=== PATIENT | female | born 1955 | race American Indian/Alaskan Native ===

== ENCOUNTER 2021-05-26 00:44 | Emergency (ER) | payer OTHER ==
[2021-05-26 02:19] LABS: Basophils % (Auto) 0.7 % (0.0-1.8); Eosinophils # (Auto) 0.2 K/mm3 (0.0-0.4); Eosinophils % (Auto) 3.3 % (0.0-4.3); Hematocrit 36.9 % (30.3-42.9); Hemoglobin 12.1 gm/dl (10.1-14.3); Lymphocytes # (Auto) 0.9 K/mm3 (1.2-5.4); Mean Corpuscular HGB Conc 33 % (30-34); Mean Corpuscular Volume 95 fl (79-97); Monocytes # (Auto) 0.5 K/mm3 (0.0-0.8); Monocytes % (Auto) 8.7 % (0.0-7.3); Platelet Count 240 K/mm3 (140-440); Red Blood Count 3.89 M/mm3 (3.65-5.03); Red Cell Distribution Width 14.4 % (13.2-15.2)
[2021-05-26 02:29] LABS: INR 1.88 (0.87-1.13)
[2021-05-26 02:30] LABS: Partial Thromboplastin Time 42.8 Sec. (24.2-36.6)
[2021-05-26 02:42] LABS: Alanine Aminotransferase 18 units/L (7-56); Albumin 4.5 g/dL (3.9-5); BUN/Creatinine Ratio 20; Blood Urea Nitrogen 22 mg/dL (7-17); Calcium 9.5 mg/dL (8.4-10.2); Hemolysis Index 11
--- NOTE | 2021-05-26 03:01 | XRay Report ---
CHEST 2 VIEWS INDICATION / CLINICAL INFORMATION: palpitations. COMPARISON: None available. FINDINGS: SUPPORT DEVICES: None. HEART / MEDIASTINUM: No significant abnormality. LUNGS / PLEURA: No significant pulmonary or pleural abnormality. No pneumothorax. ADDITIONAL FINDINGS: Cervicothoracic scoliosis with apex to the left with possible underlying vertebr al body anomaly in the upper thoracic spine. IMPRESSION: 1. No acute pulmonary or pleural findings. 2. Cervicothoracic scoliosis. Signer Name: Dominguez Crowe MD Signed: 05/26/2021 2:56 AM Workstation Name: [id number]
--- NOTE | 2021-05-26 03:05 | Emergency Department Report ---
HPI - General Chief Complaint: Arrhythmia/Palpitations Time Seen by Provider: 05/26/21 02:19 - [facility] HPI: MSE 3 The patient is a 66-year-old female present with a chief complaint of palpitations and hypertension. The patient states this evening while at rest her blood pressure elevated to 159/90 and her heart rate went up to 101 bpm. The patient states this prompted her to come to the emergency department. When asked if she has had chest pain the patient states she has had chest pain for 1 year and last saw her twister frame tender 2 days ago about the chest pain he states that "everything is okay." The patient states she had a normal stress test in [place] ugust 2020 and her last cardiac catheterization occurred in August 2019 and was within normal limits. 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 and she was told she has a diagnosis similar to lupus that makes her hypercoagulable ED Past Medical Hx - Past Medical History Previous Medical History?: Yes Hx Hypertension: Yes - Surgical History Past Surgical History?: Yes Additional Surgical History: left kidney right hand right eye left eye nodule removed from her thyroid - Family History Family history: no significant - Social History Smoking Status: Never Smoker Substance Use Type: None ED Review of Systems ROS: Stated complaint: HEART RACING HIGH BLOOD PRESSURE Other details as noted in HPI Constitutional: no symptoms reported Eyes: denies: eye pain ENT: denies: throat pain Respiratory: denies: shortness of breath Cardiovascular: chest pain, palpitations Endocrine: no symptoms reported Gastrointestinal: denies: abdominal pain Genitourinary: denies: dysuria Musculoskeletal: denies: back pain Neurological: denies: headache Physical Exam - Physical Exam Vital Signs: Vital Signs 05/26/21 00:58 Temperature 98.3 F Pulse Rate 100 H Respiratory 18 Rate Blood Pressure 134/83 O2 Sat by Pulse 98 Oximetry Physical Exam: GENERAL: The patient is well-developed well-nourished female sitting on stretcher not appearing to be in acute distress. [] HEENT: Normocephalic. Atraumatic. Extraocular motions are intact. Patient has moist mucous membranes. NECK: Supple. Trachea midline CHEST/LUNGS: Clear to auscultation. There is no respiratory distress noted. HEART/CARDIOVASCULAR: Regular. There is no tachycardia. There is no gallop rub or murmur. ABDOMEN: Abdomen is soft, nontender. Patient has normal bowel sounds. There is no abdominal distention. SKIN: There is no rash. There is no edema. There is no diaphoresis. NEURO: The patient is awake, alert, and oriented. The patient is cooperative. The patient has no focal neurologic deficits. The patient has normal speech and gait. GCS 15 MUSCULOSKELETAL: There is no evidence of acute injury. ED Course Vital Signs 05/26/21 00:58 Temperature 98.3 F Pulse Rate 100 H Respiratory 18 Rate Blood Pressure 134/83 O2 Sat by Pulse 98 Oximetry ED Medical Decision Making - Lab Data Result diagrams: 05/26/21 01:59 05/26/21 01:59 Laboratory Tests 05/26/21 05/26/21 05/26/21 01:59 01:59 01:59 WBC 5.6 RBC 3.89 Hgb 12.1 Hct 36.9 MCV 95 MCH 31 MCHC 33 RDW 14.4 Plt Count 240 Lymph % (Auto) 16.0 [place] % (Auto) 8.7 H Eos % (Auto) 3.3 Baso % (Auto) 0.7 Lymph # (Auto) 0.9 L [place] # (Auto) 0.5 Eos # (Auto) 0.2 Baso # (Auto) 0.0 Seg Neutrophils % 71.3 H Seg Neutrophils # 4.0 PT INR APTT D-Dimer Sodium 142 Potassium 4.2 Chloride 102.1 Carbon Dioxide 26 Anion Gap 18 BUN 22 H Creatinine 1.1 Estimated GFR > 60 BUN/Creatinine Ratio 20 Glucose 111 H Calcium 9.5 Total Bilirubin 0.20 AST 24 ALT 18 Alkaline Phosphatase 105 Troponin T < 0.010 Total Protein 7.4 Albumin 4.5 Albumin/Globulin Ratio 1.6 TSH 3.640 Free T4 1.20 Urine Color Urine Turbidity Urine pH Ur Specific [place] Urine Protein Urine Glucose (UA) Urine Ketones Urine Blood Urine Nitrite Urine Bilirubin Urine Urobilinogen Ur Leukocyte Esterase Urine WBC (Auto) Urine RBC (Auto) 05/26/21 05/26/21 05/26/21 02:04 02:04 Unknown WBC RBC Hgb Hct MCV MCH MCHC RDW Plt Count Lymph % (Auto) [place] % (Auto) Eos % (Auto) Baso % (Auto) Lymph # (Auto) [place] # (Auto) Eos # (Auto) Baso # (Auto) Seg Neutrophils % Seg Neutrophils # PT 23.3 H INR 1.88 H APTT 42.8 H D-Dimer 223.68 Sodium Potassium Chloride Carbon Dioxide Anion Gap BUN Creatinine Estimated GFR BUN/Creatinine Ratio Glucose Calcium Total Bilirubin AST ALT Alkaline Phosphatase Troponin T Total Protein Albumin Albumin/Globulin Ratio TSH Free T4 Urine Color Straw Urine Turbidity Clear Urine pH 7.0 Ur Specific [place] 1.008 Urine Protein <15 mg/dl Urine Glucose (UA) Neg Urine Ketones Neg Urine Blood Neg Urine Nitrite Neg Urine Bilirubin Neg Urine Urobilinogen < 2.0 Ur Leukocyte Esterase Neg Urine WBC (Auto) < 1.0 Urine RBC (Auto) 1.0 - EKG Data -: EKG Interpreted by [place] EKG shows normal: sinus rhythm, axis Rate: normal (82 bpm) - EKG Data When compared to previous EKG there are: previous EKG unavailable Interpretation: other (No ischemic changes seen) - Differential Diagnosis Anxiety, PE, GERD, Critical care attestation.: If time is entered above; I have spent that time in minutes in the direct care of this critically ill patient, excluding procedure time. ED Disposition Clinical Impression: Hypertension Disposition: 01 HOME / SELF CARE / HOMELESS Is pt being admited?: No Does the pt Need Aspirin: No Condition: Stable Instructions: Hypertension (ED), Hypertension, Adult, [id number], Managing Your Hypertension Additional Instructions: Return to the emergency department should you develop worsening symptoms, inability to tolerate food or liquids, high fever or any other concerns Referrals: Your, twister frame tender [Other] - 3-5 Days Time of Disposition: 04:08
[2021-05-26 03:07] LABS: Free T4 (Free Thyroxine) 1.2 ng/dL (0.76-1.46)
[2021-05-26 03:07] LABS: Bilirubin,Urine NEG (Negative); Blood,Urine NEG (Negative); Color,Urine Straw (Yellow); Protein,Urine <15 mg/dL mg/dL (Negative); Urobilinogen,Urine < 2.0 mg/dL (<2.0); WBC,Urine < 1.0 /HPF (0.0-6.0)
[2021-05-26 04:58] VITALS: BP 135/75
--- NOTE | 2021-05-26 13:10 | Electrocardiograph Report ---
[facility] Test Date: 2021-05-26 Test Time: 02:27:11 Pat Name: ANA TOTH Department: Room: Gender: F Echocardiograph Tech: : 1955 Requested By: CHRISTOPHER KURTZ Order Number: [id number] Reading MD: Zina Rowe Measurements Intervals [place] Rate: 82 P: 66 AR: 194 QRS: 55 QRSD: 96 T: 51 QT: 402 QTc: 471 Interpretive Statements Sinus rhythm Left atrial enlargement No previous ECG available for comparison Electronically Signed On 05-26-2021 13:10:22 EST by Zina Rowe
== END 2021-05-26 04:58 | disposition home or self-care (01) ==
LOC: ED 00:44
DX: I10 Essential (primary) hypertension (principal); R79.1 Abnormal coagulation profile; Z98.890 Other specified postprocedural states; Z88.1 Allergy status to other antibiotic agents; Z88.8 Allergy status to other drugs, medicaments and biological substances; Z91.040 Latex allergy status
CPT/HCPCS: 36415; 71046; 80053; 81001; 84439; 84443; 84484; 85025; 85379; 85610; 85730; 93005; 99284

== ENCOUNTER 2021-12-07 03:36 | Emergency (ER) | payer OTHER ==
[2021-12-07] MEDS ORDERED: ASPIRIN 325 MG TAB PO ONE (03:57)
--- NOTE | 2021-12-07 04:26 | XRay Report ---
CHEST 2 VIEWS INDICATION / CLINICAL INFORMATION: chest pain STUDY TIME: 409 COMPARISON: 05/26/2021 FINDINGS: SUPPORT DEVICES: None. HEART / MEDIASTINUM: No significant abnormality. LUNGS / PLEURA: Left apex is partly excluded. Visualized lung oropeza appear clear. No pleural effusio ns are seen. No pneumothorax. ADDITIONAL FINDINGS: No significant additional findings. Signer Name: Teodoro Whipple MD Signed: 12/07/2021 4:22 AM Workstation Name: [id number]
[2021-12-07 05:04] LABS: Basophils % (Auto) 0.7 % (0.0-1.8); Eosinophils # (Auto) 0.2 K/mm3 (0.0-0.4); Hematocrit 36.9 % (30.3-42.9); Hemoglobin 12.2 gm/dl (10.1-14.3); Lymphocytes # (Auto) 1.2 K/mm3 (1.2-5.4); Lymphocytes % (Auto) 24.3 % (13.4-35.0); Mean Corpuscular HGB Conc 33 % (30-34); Mean Corpuscular Volume 94 fl (79-97); Monocytes # (Auto) 0.5 K/mm3 (0.0-0.8); Monocytes % (Auto) 9.7 % (0.0-7.3); Platelet Count 241 K/mm3 (140-440); Red Blood Count 3.93 M/mm3 (3.65-5.03); Red Cell Distribution Width 13.9 % (13.2-15.2)
[2021-12-07 05:11] LABS: INR 2.21 (0.87-1.13)
[2021-12-07 05:12] LABS: Partial Thromboplastin Time 40.3 Sec. (24.2-36.6)
[2021-12-07 05:41] LABS: Alanine Aminotransferase 19 units/L (7-56); Albumin 4.5 g/dL (3.9-5); BUN/Creatinine Ratio 15; Blood Urea Nitrogen 15 mg/dL (7-17); Calcium 9.2 mg/dL (8.4-10.2); Hemolysis Index 4
[2021-12-07 12:00] VITALS: BP 148/83
--- NOTE | 2021-12-07 12:53 | Emergency Department Report ---
HPI - General Chief Complaint: Chest Pain Time Seen by Provider: 12/07/21 12:40 - HPI HPI: The patient woke up around 2 in the morning feeling a moderate pressure in her left chest that was nonradiating and not associated with any shortness of breath nausea nor diaphoresis. She denies vomiting fever chills or any other associated symptoms. She not take any medicines for this. The pain is almost gone at this time. The patient had a cardiac catheterization a year ago that was normal. She also had a echocardiogram on November 07 and is current I reviewed the results with her senior project coordinator tomorrow. She took nothing for this other than her usual high blood pressure medicines. Nothing makes it better nor worse. ED Past Medical Hx - Past Medical History Hx Hypertension: Yes Additional medical history: high cholesterol, blood clot in right leg - Surgical History Past Surgical History?: Yes Additional Surgical History: left kidney right hand right eye left eye nodule removed from her thyroid - Social History Smoking Status: Never Smoker Substance Use Type: None ED Review of Systems ROS: Stated complaint: CHEST PAIN Other details as noted in HPI Other: Review of Systems: Constitutional: Negative for chills, diaphoresis and fever. HENT: Negative for sore throat. Eyes: Negative for discharge and redness. Respiratory: Negative for cough, choking and shortness of breath. Cardiovascular:Negaitive for chest pain. Negative for palpitations and leg swe lling. Gastrointestinal: Negative for abdominal pain, constipation, diarrhea, nausea and vomiting. Genitourinary: Negative for dysuria and hematuria. Musculoskeletal: Negative for arthralgias, back pain, myalgias and neck pain. Skin: Negative for rash and wound. Neurological: Negative for dizziness and headaches. Psychiatric/Behavioral: Negative for suicidal ideas. All other systems reviewed and are negative. Physical Exam - Physical Exam Vital Signs: Vital Signs 12/07/21 12/07/21 12/07/21 03:53 11:59 12:00 Temperature 98.1 F Pulse Rate 69 76 Respiratory 18 18 18 Rate Blood Pressure 148/83 Blood Pressure 149/79 148/83 [Left] O2 Sat by Pulse 95 96 97 Oximetry Physical Exam: Physical Exam: Constitutional: AAOX3. No acute distress. No diaphoresis. HENT: Normocephalic. Pupils equal and reactive. No throat edema or erythema. Neck: No neck rigidity or tenderness. Cardiovascular: Heart sounds: No murmur. Normal rate and regular rhythm. Pulses: Intact distal pulses. Lungs: No wheezing or rales. Chest wall: No tenderness. Abdominal: No distension. No mass/pulsatile mass. No abdominal tenderness, guarding nor rebound. Musculoskeletal: Normal range of motion. No edema, No calf TTP. Skin: Warm and dry. Neurological: Alert and oriented to person, place, and time. Psychiatric: Mood and affect normal. Normal cognition and memory. Normal ju dgement. ED Course Vital Signs 12/07/21 12/07/21 12/07/21 03:53 11:59 12:00 Temperature 98.1 F Pulse Rate 69 76 Respiratory 18 18 18 Rate Blood Pressure 148/83 Blood Pressure 149/79 148/83 [Left] O2 Sat by Pulse 95 96 97 Oximetry - Reevaluation(s) Reevaluation #1: 12/07/21 12:52 EKG done at 3:50 AM showed a rate of 63, normal. The rhythm is sinus rhythm, normal. There are no ST or T wave abnormalities. The patient's CBC chemistries and troponin came back within normal limits. 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 The pain is better at this point and she has had repeated negative troponin measurements while in the emergency department. At this time we will discharge she will follow-up with her senior project coordinator tomorrow or return if any other issues arise. ED Medical Decision Making - Lab Data Result diagrams: 12/07/21 04:29 12/07/21 04:29 Critical care attestation.: If time is entered above; I have spent that time in minutes in the direct care of this critically ill patient, excluding procedure time. ED Disposition Clinical Impression: Chest pain Disposition: 01 HOME / SELF CARE / HOMELESS Is pt being admited?: No Does the pt Need Aspirin: No Condition: Stable Instructions: Nonspecific Chest Pain, Adult Print Language: [place]
== END 2021-12-07 13:40 | disposition home or self-care (01) ==
LOC: ED 03:36
DX: R07.9 Chest pain, unspecified (principal); I10 Essential (primary) hypertension
CPT/HCPCS: 36415; 71046; 80053; 84484; 85025; 85610; 85730; 93005; 99284